=== PATIENT | female | born 1995 | race Caucasian/White ===

== ENCOUNTER 2017-04-15 15:49 | Emergency (ER) | payer OTHER ==
[2017-04-15 17:23] VITALS: BP 99/51
== END 2017-04-15 17:33 | disposition home or self-care (01) ==
LOC: ED 15:49
DX: S50.861A Insect bite (nonvenomous) of right forearm, initial encounter (principal); L03.113 Cellulitis of right upper limb; W57.XXXA Bitten or stung by nonvenomous insect and other nonvenomous arthropods, initial encounter; Y93.89 Activity, other specified; Y92.89 Other specified places as the place of occurrence of the external cause; Y99.8 Other external cause status
CPT/HCPCS: J0690

== ENCOUNTER 2017-10-30 13:10 | Emergency (ER) | payer OTHER ==
[~2017-10-30] VITALS: Ht 162.6 cm; Wt 58.6 kg
[2017-10-30 13:20] VITALS: Ht 162.6 cm; Wt 58.6 kg
[2017-10-30 15:12] VITALS: BP 111/66
== END 2017-10-30 15:12 | disposition home or self-care (01) ==
LOC: ED 13:10
DX: N10 Acute pyelonephritis (principal)
CPT/HCPCS: J0696; J3490